=== PATIENT | male | born 1955 | race Caucasian/White ===

== ENCOUNTER 2019-08-10 12:53 | Observation (INO) | payer OTHER ==
[~2019-08-10] VITALS: Ht 175.3 cm; Wt 150.3 kg
[~2019-08-10 12:53] MED LIST: ATOR40TA59 PO; INSU100V8 SQ; LIRA0.6P SQ; LISI10TA2 PO; MELO15TA23 PO; METF500T16 PO; ceFAZolin SODIUM 3 GM in IV DEXTROSE 5% 100ML 100 ML IV ONE
[2019-08-10] MEDS ORDERED: ETOMIDATE 20 MG/10 ML VIAL. IV ONE (13:52)
[2019-08-10] MEDS ORDERED: KETOROLAC 30 MG/ML VIAL. ONE (13:52)
[2019-08-10] MEDS ORDERED: DEXAMETHASONE SOD PHOS 4 MG/ML VIAL ONE (13:52)
[2019-08-10] MEDS ORDERED: FAMOTIDINE 20 MG/2 ML VIAL ONE (13:52)
[2019-08-10] MEDS ORDERED: ONDANSETRON PF 4 MG/2 ML VIAL. ONE (13:52)
[2019-08-10] MEDS ORDERED: SUCCINYLCHOLINE 200 MG/10 ML VIAL. ONE (13:53)
[2019-08-10] MEDS ORDERED: fentaNYL PF VIAL 100 MCG/2 ML VIAL ONE (13:53)
[2019-08-10] MEDS ORDERED: BACITRACIN 50,000 UNIT in IV NORMAL SALINE 500ML BAG 500 ML IRR ONE (14:00)
[2019-08-10] MEDS ORDERED: CHLORHEXIDINE 0.12% 15 ML MOUTHWASH. SWSP ONE (14:15)
[2019-08-10] MEDS ORDERED: BUPIVACAINE-EPI 0.5%-1:200000 MPF 30 ML VIAL. INJ ONE (14:15)
[2019-08-10] MEDS ORDERED: INSULIN LISPRO 100 UNIT/ML 3ML VIAL for OP,RR ONLY. SQ PRN (14:15)
[2019-08-10] MEDS ORDERED: GELATIN SPONGE SIZE 100. ONE (14:18)
[2019-08-10] MEDS ORDERED: ROCURONIUM 50 MG/5 ML VIAL. ONE (15:06)
[2019-08-10] MEDS ORDERED: PHENYLEPHRINE in 0.9% NACL PF 1 MG/10 ML SYRINGE. IV ONE (15:38)
[2019-08-10] MEDS ORDERED: GLYCOPYRROLATE 1 MG/5 ML VIAL. ONE (15:39)
[2019-08-10] MEDS ORDERED: NEOSTIGMINE METHYLSULFATE 5 MG/5 ML SYRINGE. ONE (15:39)
--- NOTE | 2019-08-10 16:12 | PDOC4 ---
OPERATIVE NOTE Date: Date: Aug 10, 2019 Pre-Op Diagnosis: Aortic stenosis Caries, non restorable teeth # 14, 15, 16, 17, 18 Post-Op Diagnosis: same Procedure Performed: Surgical removal of Caries, non restorable teeth # 14, 15, 16, 17, 18 Surgeon: navjot Anesthesia Type: McNit Blood Loss: 20 Specimans Obtained: teeth disposed of in OR Findings: see dictation Complications: none Operative Note: see dictation Caries, non restorable teeth # 14, 15, 16, 17, 18 CHRISTY VEGA DMD Aug 10, 2019 16:12
[2019-08-10] MEDS ORDERED: PROCHLORPERAZINE 10 MG/2 ML VIAL. ONE (16:17)
[2019-08-10] MEDS ORDERED: IV RINGERS,LACTATED 1000ML 1,000 ML IV SCH (16:18)
[2019-08-10] MEDS: PROCHLORPERAZINE 10 MG/2 ML VIAL. IV PRN ×2 (16:27→16:44)
[2019-08-10] MEDS ORDERED: HYDROmorphone 2 MG/ML VIAL IV PRN (16:30)
[2019-08-10] MEDS ORDERED: ONDANSETRON PF 4 MG/2 ML VIAL. IV PRN (16:30)
[2019-08-10] MEDS ORDERED: fentaNYL PF VIAL 100 MCG/2 ML VIAL IV PRN ×2 (16:30)
[2019-08-10] MEDS ORDERED: MORPHINE SULFATE 2 MG/ML VIAL. IV PRN (16:30)
--- NOTE | 2019-08-10 17:22 | PDOC ---
Date and Time 64 yo with severe aortic stenosis (0.9cm2), pulmonary hypertension and 3 vessel coronary artery disease who is 1 hour post op from dental extraction. Infected teeth had to be removed in anticipation of AVR next Saturday. Patient arrived with RA SpO2 90%. Supplemental oxygen was given prior to induction and he did improve to 95-97%. Uneventful general anesthesia for dental extraction. In PACU 1 hr post op he is awake with a clear airway. Patient does NOT have supplemental oxygen at home. I believe safest course with his cardiac issues and borderline SpO2 is to keep him in the hospital with supplemental oxygen and telemetry and SpO2 monitor overnight. This was discussed with Dr Casas. Orders written. Hospitalist service to see and manage. Current Medications Current Medications Cefazolin Sodium 3 gm/Dextrose 100 ml @ 200 mls/hr ONCE ONCE IV ; Start 08/10/19 at 06:00; Stop 08/10/19 at 06:29; Status DC Ketorolac Tromethamine (Toradol 30mg Vial) 30 mg STK-MED ONCE .ROUTE ; Start 08/10/19 at 13:52; Stop 08/10/19 at 13:53; Status DC Famotidine (Pepcid Vial) 20 mg STK-MED ONCE .ROUTE ; Start 08/10/19 at 13:52; Stop 08/10/19 at 13:53; Status DC Ondansetron HCl (Zofran) 4 mg STK-MED ONCE .ROUTE ; Start 08/10/19 at 13:52; Stop 08/10/19 at 13:53; Status DC Etomidate (Amidate) 20 mg STK-MED ONCE IV ; Start 08/10/19 at 13:52; Stop 08/10/19 at 13:53; Status DC Dexamethasone Sodium Phosphate (Decadron) 4 mg STK-MED ONCE .ROUTE ; Start 08/10/19 at 13:52; Stop 08/10/19 at 13:53; Status DC Succinylcholine Chloride (Anectine) 200 mg STK-MED ONCE .ROUTE ; Start 08/10/19 at 13:53; Stop 08/10/19 at 13:53; Status DC Fentanyl Citrate (Fentanyl 2ml Vial) 100 mcg STK-MED ONCE .ROUTE ; Start 08/10/19 at 13:53; Stop 08/10/19 at 13:53; Status DC Insulin Human Lispro (HumaLOG VIAL for OP,RR ONLY) 0-10 units PRN Q1HR PRN SQ PER PROTOCOL Last administered on 08/10/19at 16:29; Start 08/10/19 at 14:15; Stop 08/11/19 at 14:14 Chlorhexidine Gluconate (Peridex) 15 ml 1X ONCE SWSP Last administered on 08/10/19at 15:33; Start 08/10/19 at 14:15; Stop 08/10/19 at 14:16; Status DC Bupivacaine HCl/ Epinephrine Bitart (Sensorcain-Epi 0.5%-1:606102 Mpf) 30 ml 1X ONCE INJ Last administered on 08/10/19at 16:10; Start 08/10/19 at 14:15; Stop 08/10 at 14:16; Status DC Bacitracin 98490 unit/Sodium Chloride 500 ml @ 500 mls/hr 1X ONCE IRR Last administered on 08/10/19at 16:10; Start 08/10/19 at 14:00; Stop 08/10/19 at 14:59; Status DC Gelatin (Gelfoam Size 100) 1 each STK-MED ONCE .ROUTE Last administered on 08/10/19at 15:33; Start 08/10/19 at 14:18; Stop 08/10/19 at 14:19; Status DC Rocuronium Charlo (Zemuron) 50 mg STK-MED ONCE .ROUTE ; Start 08/10/19 at 15:06; Stop 08/10/19 at 15:06; Status DC Phenylephrine HCl (PHENYLEPHRINE in 0.9% NACL PF) 1 mg STK-MED ONCE IV ; Start 08/10/19 at 15:38; Stop 08/10/19 at 15:38; Status DC Neostigmine Methylsulfate (Neostigmine Methylsulfate) 5 mg STK-MED ONCE .ROUTE ; Start 08/10/19 at 15:39; Stop 08/10/19 at 15:39; Status DC Glycopyrrolate (Robinul) 1 mg STK-MED ONCE .ROUTE ; Start 08/10/19 at 15:39; Stop 08/10/19 at 15:39; Status DC Prochlorperazine Edisylate (Compazine) 10 mg STK-MED ONCE .ROUTE ; Start 08/10/19 at 16:17; Stop 08/10/19 at 16:17; Status DC Ondansetron HCl (Zofran) 4 mg PRN Q6HRS PRN IV NAUSEA/VOMITING; Start 08/10/19 at 16:30; Stop 08/11/19 at 16:29 Fentanyl Citrate (Fentanyl 2ml Vial) 25 mcg PRN Q5MIN PRN IV MILD PAIN 1-3; Start 08/10/19 at 16:30; Stop 08/11/19 at 16:29 Fentanyl Citrate (Fentanyl 2ml Vial) 50 mcg PRN Q5MIN PRN IV MODERATE TO SEVERE PAIN; Start 08/10/19 at 16:30; Stop 08/11/19 at 16:29 Morphine Sulfate (Morphine Sulfate) 1 mg PRN Q10MIN PRN IV SEVERE PAIN 7-10; Start 08/10/19 at 16:30; Stop 08/11/19 at 16:29 Ringer's Solution 1,000 ml @ 30 mls/hr Q24H IV ; Start 08/10/19 at 16:18; Stop 08/11/19 at 04:17 Hydromorphone HCl (Dilaudid) 0.5 mg PRN Q10MIN PRN IV SEV PAIN, Second choice; Start 08/10/19 at 16:30; Stop 08/11/19 at 16:29 Prochlorperazine Edisylate (Compazine) 5 mg PACU PRN PRN IV NAUSEA, MRX1 Last administered on 08/10/19at 16:44; Start 08/10/19 at 16:30; Stop 08/11/19 at 16:29 Active Scripts Active Reported Lantus (Insulin Glargine,Hum.rec.anlog) 100 Unit/1 Ml Vial 50 Unit SQ DAILY Metformin Hcl 500 Mg Tablet 2,000 Mg PO QEVNG Meloxicam 15 Mg Tablet 1 Tab PO DAILY Lisinopril 10 Mg Tablet 1 Tab PO DAILY Victoza 2-Vasile (Liraglutide) 0.6 Mg/0.1 Ml Pen.injctr 0.6 Mg SQ Q HS Atorvastatin Calcium 40 Mg Tablet 0.5 Tab PO QHS Pertinent Labs/Test Laboratory Tests Test 08/10/19 14:04 08/10/19 16:14 Glucose (Fingerstick) 125 mg/dL (70-99) 177 mg/dL (70-99) Laboratory Tests Test 08/10/19 14:04 08/10/19 16:14 Glucose (Fingerstick) 125 mg/dL (70-99) 177 mg/dL (70-99) LAST VITALS Vital Signs Date Time Temp Pulse Resp B/P (MAP) Pulse Ox O2 Delivery O2 Flow Rate FiO2 08/10/19 16:55 77 18 92 Nasal Cannula 2 08/10/19 16:40 161/73 08/10/19 16:06 98.1 98.1 ALEXUS GARCIA MD Aug 10, 2019 17:22
[2019-08-10 18:15] VITALS: BP 159/65
[2019-08-10] MEDS ORDERED: IV DEXTROSE 5% 250 ML BAG. IV PRN (18:45)
[2019-08-10] MEDS ORDERED: NON FORMULARY ITEM (Liraglutide (Victoza 2-Pak) 0.6 MG) SQ SCH (18:45)
[2019-08-10] MEDS ORDERED: DOCUSATE SODIUM 100 MG CAPSULE. PO PRN (18:45)
[2019-08-10] MEDS ORDERED: MORPHINE SULFATE 4 MG/ML VIAL. IV PRN (18:45)
[2019-08-10] MEDS ORDERED: DEXTROSE 50% 25 GM / 50ML DISP.SYRIN. IV PRN (18:45)
[2019-08-10 19:46] VITALS: BP 164/90
[2019-08-10] MEDS ORDERED: ATORVASTATIN CALCIUM 40 MG TABLET. PO SCH (21:00)
[2019-08-10] MEDS: CHLORHEXIDINE 0.12% 15 ML MOUTHWASH. SWSP SCH (21:44)
--- NOTE | 2019-08-10 22:10 | OP ---
DATE OF SURGERY: 08/10/2019 OPERATING SERVICE: cottage master. ATTENDING PHYSICIAN: Zenon Vega DMD PREOPERATIVE DIAGNOSES: Aortic stenosis, diabetes, osteoarthritis, obstructive sleep apnea, morbid obesity and finally carious nonrestorable teeth numbers 14, 15, 16, 17, and 18. POSTOPERATIVE DIAGNOSES: Aortic stenosis, diabetes, osteoarthritis, obstructive sleep apnea, morbid obesity and finally carious nonrestorable teeth numbers 14, 15, 16, 17, and 18. PROCEDURE PERFORMED: Extraction of teeth 14, 15, 16, 17, 18. BRIEF HISTORY: The patient was referred to this urgent referral as he has severe aortic stenosis with a compromised cardiopulmonary function. He was planned for aortic valve replacement on 08/17/2019. Considering this timeframe and somewhat poor dentition in selected teeth, he was referred for urgent extraction and removal of these teeth. Brief history and physical was performed in our clinic and permit was obtained and he was scheduled for surgery. COMPLICATIONS: None noted at the time of surgery. SPECIMEN SENT: None. DRAINS PLACED: None. ESTIMATED BLOOD LOSS: Approximately 20 mL. OPERATIVE DESCRIPTION: After the history and physical was updated in the preoperative holding area, the patient was transported by the Anesthesia Service to the operating suite, placed in the supine position. General anesthesia was induced. The patient was intubated with a PEG tube secured to the right side of the face. Timeout was initiated and all surgical staff was in agreeance. The patient was then prepped and draped in the normal sterile fashion. The moistened throat pack was placed. Bite block was placed in the oral cavity and local anesthesia was then introduced, approximately 16 mL of local anesthetic in the proposed surgical areas. An additional 10 mL for a total of 26 mL were administered at the culmination of the procedure. This was 0.5% bupivacaine, 1:200,000 epinephrine. The surgery began in the upper left and lower left quadrants with a 15 blade, a full thickness mucoperiosteal flap was then elevated buccally at the sites of 14, 15, 16, 17, 18 and 19. The teeth were luxated, elevated and extracted. Multiple roots were required to be removed on each tooth with a rotary instrumentation. This was performed under copious normal sterile saline irrigation and hand instruments were then used to remove the root tips. Each extraction site was curetted and lavaged with copious normal sterile saline. Alveoloplasty was then performed in the upper left and lower left quadrants. With this, the bony undercuts were removed and smoothed with rongeurs, bone file and curettaged with copious normal sterile saline irrigation. The sites were packed with Gelfoam and oversewn with 3-0 chromic gut sutures in a running locked fashion. Once the sites were hemostatic, the patient's oral cavity was then lavaged and suctioned. The moistened throat pack was removed. An OG was passed and the stomach was decompressed. The patient was then returned to the care of Anesthesia, where he was awakened and extubated without complication and transported to the PACU in stable condition. ZENON VEGA DMD DR: Fely JOB#: [id number] / [id number]
--- NOTE | 2019-08-10 22:14 | PDOC1 ---
History and Physical Date of Admission Date of Admission DATE: 08/10/19 TIME: 22:09 Source Source: Chart review, Patient History of Present Illness History of Present Illness pt taken to OR today by Dr. Casas for teeth extraction, 5 teeth removed for dental caries. wanted better hygeine before cardiac valve repair done in [place] mo next week, this was elective surg, he walked in with Sa02 90% on room air, and he has needed 02 after surg, having dental pain, otherwise feels well he served as an MP in the in 1972, went to [employer] Family History Family History: No Significant Social History Smoke: No ALCOHOL: none Drugs: None Current Medications Current Medications Current Medications Cefazolin Sodium 3 gm/Dextrose 100 ml @ 200 mls/hr ONCE ONCE IV ; Start 08/10/19 at 06:00; Stop 08/10/19 at 06:29; Status DC Ketorolac Tromethamine (Toradol 30mg Vial) 30 mg STK-MED ONCE .ROUTE ; Start 08/10/19 at 13:52; Stop 08/10/19 at 13:53; Status DC Famotidine (Pepcid Vial) 20 mg STK-MED ONCE .ROUTE ; Start 08/10/19 at 13:52; Stop 08/10/19 at 13:53; Status DC Ondansetron HCl (Zofran) 4 mg STK-MED ONCE .ROUTE ; Start 08/10/19 at 13:52; Stop 08/10/19 at 13:53; Status DC Etomidate (Amidate) 20 mg STK-MED ONCE IV ; Start 08/10/19 at 13:52; Stop 08/10/19 at 13:53; Status DC Dexamethasone Sodium Phosphate (Decadron) 4 mg STK-MED ONCE .ROUTE ; Start 08/10/19 at 13:52; Stop 08/10/19 at 13:53; Status DC Succinylcholine Chloride (Anectine) 200 mg STK-MED ONCE .ROUTE ; Start 08/10/19 at 13:53; Stop 08/10/19 at 13:53; Status DC Fentanyl Citrate (Fentanyl 2ml Vial) 100 mcg STK-MED ONCE .ROUTE ; Start 08/10/19 at 13:53; Stop 08/10/19 at 13:53; Status DC Insulin Human Lispro (HumaLOG VIAL for OP,RR ONLY) 0-10 units PRN Q1HR PRN SQ PER PROTOCOL Last administered on 08/10/19at 16:29; Start 08/10/19 at 14:15; Stop 08/11/19 at 14:14 Chlorhexidine Gluconate (Peridex) 15 ml 1X ONCE SWSP Last administered on 08/10/19at 15:33; Start 08/10/19 at 14:15; Stop 08/10/19 at 14:16; Status DC Bupivacaine HCl/ Epinephrine Bitart (Sensorcain-Epi 0.5%-1:873707 Mpf) 30 ml 1X ONCE INJ Last administered on 08/10/19at 16:10; Start 08/10/19 at 14:15; Stop 08/10/19 at 14:16; Status DC Bacitracin 93439 unit/Sodium Chloride 500 ml @ 500 mls/hr 1X ONCE IRR Last administered on 08/10/19at 16:10; Start 08/10/19 at 14:00; Stop 08/10/19 at 14:59; Status DC Gelatin (Gelfoam Size 100) 1 each STK-MED ONCE .ROUTE Last administered on 08/10/19at 15:33; Start 08/10/19 at 14:18; Stop 08/10/19 at 14:19; Status DC Rocuronium Vesper (Zemuron) 50 mg STK-MED ONCE .ROUTE ; Start 08/10/19 at 15:06; Stop 08/10/19 at 15:06; Status DC Phenylephrine HCl (PHENYLEPHRINE in 0.9% NACL PF) 1 mg STK-MED ONCE IV ; Start 08/10/19 at 15:38; Stop 08/10/19 at 15:38; Status DC Neostigmine Methylsulfate (Neostigmine Methylsulfate) 5 mg STK-MED ONCE .ROUTE ; Start 08/10/19 at 15:39; Stop 08/10/19 at 15:39; Status DC Glycopyrrolate (Robinul) 1 mg STK-MED ONCE .ROUTE ; Start 08/10/19 at 15:39; Stop 08/10/19 at 15:39; Status DC Prochlorperazine Edisylate (Compazine) 10 mg STK-MED ONCE .ROUTE ; Start 08/10/19 at 16:17; Stop 08/10/19 at 16:17; Status DC Ondansetron HCl (Zofran) 4 mg PRN Q6HRS PRN IV NAUSEA/VOMITING; Start 08/10/19 at 16:30; Stop 08/11/19 at 16:29 Fentanyl Citrate (Fentanyl 2ml Vial) 25 mcg PRN Q5MIN PRN IV MILD PAIN 1-3; Start 08/10/19 at 16:30; Stop 08/11/19 at 16:29 Fentanyl Citrate (Fentanyl 2ml Vial) 50 mcg PRN Q5MIN PRN IV MODERATE TO SEVERE PAIN; Start 08/10/19 at 16:30; Stop 08/11/19 at 16:29 Morphine Sulfate (Morphine Sulfate) 1 mg PRN Q10MIN PRN IV SEVERE PAIN 7-10; Start 08/10/19 at 16:30; Stop 08/11/19 at 16:29 Ringer's Solution 1,000 ml @ 30 mls/hr Q24H IV ; Start 08/10/19 at 16:18; Stop 08/11/19 at 04:17 Hydromorphone HCl (Dilaudid) 0.5 mg PRN Q10MIN PRN IV SEV PAIN, Second choice; Start 08/10/19 at 16:30; Stop 08/11/19 at 16:29 Prochlorperazine Edisylate (Compazine) 5 mg PACU PRN PRN IV NAUSEA, MRX1 Last administered on 08/10/19at 16:44; Start 08/10/19 at 16:30; Stop 08/11/19 at 16:29 Atorvastatin Calcium (Lipitor) 20 mg QHS PO Last administered on 08/10/19at 21:46; Start 08/10/19 at 21:00 Insulin Glargine (Lantus Syringe) 50 unit DAILY SQ ; Start 08/11/19 at 09:00 Lisinopril (Prinivil) 10 mg DAILY PO ; Start 08/11/19 at 09:00 Metformin HCl (Glucophage) 2,000 mg QEVNG PO ; Start 08/11/19 at 18:00 Non-Formulary Medication (Liraglutide (Victoza 2-Vasile)) 0.6 mg q hs SQ ; Start 08/10/19 at 18:45; Status UNV Meloxicam (Mobic) 15 mg DAILY PO ; Start 08/11/19 at 09:00 Morphine Sulfate (Morphine Sulfate) 4 mg PRN Q2HR PRN IV PAIN; Start 08/10/19 at 18:45 Insulin Human Lispro (HumaLOG) 0-7 UNITS TIDWMEALS SQ ; Start 08/11/19 at 08:00 Dextrose (Dextrose 50%-Water Syringe) 12.5 gm PRN Q15MIN PRN IV SEE COMMENTS; Start 08/10/19 at 18:45 Dextrose 250 ml PRN Q15MIN PRN IV SEE COMMENTS; Start 08/10/19 at 18:45 Docusate Sodium (Colace) 100 mg PRN DAILY PRN PO CONSTIPATION; Start 08/10/19 at 18:45 Docusate Sodium (Colace) 100 mg DAILY PO ; Start 08/11/19 at 09:00 Chlorhexidine Gluconate (Peridex) 15 ml QID SWSP Last administered on 08/10/19at 21:46; Start 08/10/19 at 21:00 Active Scripts Active Reported Lantus (Insulin Glargine,Hum.rec.anlog) 100 Unit/1 Ml Vial 50 Unit SQ DAILY Metformin Hcl 500 Mg Tablet 2,000 Mg PO QEVNG Meloxicam 15 Mg Tablet 1 Tab PO DAILY Lisinopril 10 Mg Tablet 1 Tab PO DAILY Victoza 2-Vasile (Liraglutide) 0.6 Mg/0.1 Ml Pen.injctr 0.6 Mg SQ Q HS Atorvastatin Calcium 40 Mg Tablet 0.5 Tab PO QHS Allergies Allergies: Coded Allergies: Tetracyclines (Verified Allergy, Intermediate, BROKE OUT [place]A (1970'S [place] ), 08/10/19) ROS General: No: Chills, Night Sweats, Fatigue, Malaise, Appetite, Other PSYCHOLOGICAL ROS: No: Anxiety, Behavioral Disorder, Concentration difficultie, Decreased libido, Depression, Disorientation, Hallucinations, Hostility, Irritablity, Memory difficulties, Mood Swings, Obsessive thoughts, Physical abuse, Sexual abuse, Sleep disturbances, Suicidal ideation, Other Eyes: No Blurry vision, No Decreased vision, No Double vision, No Dry eyes, No Excessive tearing, No Eye Pain, No Itchy Eyes, No Loss of vision, No Photophobia, No Scotomata, No Uses contacts, No Uses glasses, No Other HEENT: No: Heacaches, Visual Changes, Hearing change, Nasal congestion, Nasal discharge, Oral lesions, Sinus pain, Sore Throat, Epistaxis, Sneezing, Snoring, Tinnitus, Vertigo, Vocal changes, Other Respiratory: YES: Shortness of breath, SOB with excertion, Tachypnea; No: Cough, Hemoptysis, Orthopnea, Pleuritic Pain, Sputum Changes, Stridor, Wheezing, Other Cardiovascular: No Chest Pain, No Palpitations, No Orthopnea, No Paroxysmal Noc. Dyspnea, No Edema, No Lt Headedness, No Other Gastrointestinal: No Nausea, No Vomiting, No Abdominal Pain, No Diarrhea, No Constipation, No Melena, No Hematochezia, No Other Genitourinary: No Dysuria, No Frequency, No Incontinence, No Hematuria, No Retention, No Discharge, No Urgency, No Pain, No Flank Pain, No Other, No , No , No , No , No , No , No Musculoskeletal: Yes Joint Stiffness, Yes Joint Swelling; No Gait Disturbance, No Joint Pain, No Muscle Pain, No Muscular Weakness, No Pain In:, No Swelling In:, No Other Neurological: No Behavorial Changes, No Bowel/Bladder ControlChng, No Confusion, No Dizziness, No Gait Disturbance, No Headaches, No Impaired Coord/balance, No Memory Loss, No Numbness/Tingling, No Seizures, No Speech Problems, No Tremors, No Visual Changes, No Weakness, No Other Skin: No Dry Skin, No Eczema, No Hair Changes, No Lumps, No Mole Changes, No M ottling, No Nail Changes, No Pruritus, No Rash, No Skin Lesion Changes, No Other, No Acne Physical Exam General: Alert, Oriented X3, No acute distress HEENT: Atraumatic, EOMI Lungs: Clear to auscultation, Normal air movement Heart: RRR, no gallops, murmurs (loud) Abdomen: Normal bowel sounds, Soft Extremities: No clubbing, No cyanosis, No edema Skin: No rashes, No significant lesion Neuro: Normal gait, Normal tone, Cranial nerves 3-12 NL Psych/Mental Status: Mental status NL, Mood NL Vitals Vitals Vital Signs Date Time Temp Pulse Resp B/P (MAP) Pulse Ox O2 Delivery O2 Flow Rate FiO2 08/10/19 19:46 98.7 78 16 164/90 (114) 95 Nasal Cannula 3.0 98.7 Labs Labs Laboratory Tests Test 08/10/19 14:04 08/10/19 16:14 08/10/19 18:27 08/10/19 20:43 Glucose (Fingerstick) 125 mg/dL (70-99) 177 mg/dL (70-99) 226 mg/dL (70-99) 247 mg/dL (70-99) Laboratory Tests Test 08/10/19 14:04 08/10/19 16:14 08/10/19 18:27 08/10/19 20:43 Glucose (Fingerstick) 125 mg/dL (70-99) 177 mg/dL (70-99) 226 mg/dL (70-99) 247 mg/dL (70-99) VTE Prophylaxis Ordered VTE Prophylaxis Devices: No VTE Pharmacological Prophylaxi: No Assessment/Plan Assessment/Plan acute hypoxia after surgery dental caries, removed today severe aortic stenosis, is scheduled for Valve repair 1 week from today at [facility] chronic systolic CHF from stenosis morbid obesity SAM ROUSE MD Aug 10, 2019 22:13
[2019-08-10 22:27] VITALS: BP 155/83
[2019-08-11 03:22] VITALS: BP 141/71
[2019-08-11 06:55] LABS: BASO % 0 % (0-3); EOS % 0 % (0-3); HEMATOCRIT 44.8 % (39.0-53.0); HEMOGLOBIN 15.1 g/dL (13.0-17.5); LYMPH # 1.3 x10^3/uL (1.0-4.8); LYMPH % 10 % (24-48); MEAN CORPUSCULAR HEMOGLOBIN 31 pg (25-35); MEAN CORPUSCULAR HGB CONC 34 g/dL (31-37); MEAN CORPUSCULAR VOLUME 92 fL (79-100); MONO # 0.7 x10^3/uL (0.0-1.1); MONO % 6 % (0-9); NEUT # 10.5 x10^3/uL (1.8-7.7); NEUT % 84 % (31-73); PLATELET COUNT 186 x10^3/uL (140-400); RED CELL DISTRIBUTION WIDTH 14.4 % (11.5-14.5); WHITE BLOOD COUNT 12.5 x10^3/uL (4.0-11.0)
[2019-08-11 07:00] VITALS: BP 138/80
[2019-08-11 07:24] LABS: ALBUMIN 3.6 g/dL (3.4-5.0); ALBUMIN/GLOBULIN RATIO 0.8 (1.0-1.7); CALCIUM 9.3 mg/dL (8.5-10.1); POTASSIUM 4.3 mmol/L (3.5-5.1); TOTAL BILIRUBIN 0.8 mg/dL (0.2-1.0); TOTAL PROTEIN 7.9 g/dL (6.4-8.2)
[2019-08-11] MEDS ORDERED: INSULIN LISPRO 300 UNITS/3 ML VIAL. SQ SCH (08:00)
[2019-08-11] MEDS ORDERED: INSULIN GLARGINE SYRINGE. SQ SCH (09:00)
[2019-08-11] MEDS ORDERED: MELOXICAM 7.5 MG TABLET PO SCH (09:00)
[2019-08-11] MEDS: CHLORHEXIDINE 0.12% 15 ML MOUTHWASH. SWSP SCH (09:00)
[2019-08-11] MEDS ORDERED: LISINOPRIL 10 MG TABLET PO SCH (09:00)
[2019-08-11] MEDS ORDERED: DOCUSATE SODIUM 100 MG CAPSULE. PO SCH (09:00)
[2019-08-11 11:00] VITALS: BP 129/64
--- NOTE | 2019-08-11 11:27 | NUR ---
Provided information on six minute walk and patient refused the test. Wished to be seen by primary first at the [facility].
--- NOTE | 2019-08-11 12:04 | PDOC ---
[employer] PROGRESS NOTE Chief Complaint Chief Complaint Dental Caries Acute hypoxia after surgery Aortic Stenosis Chronic Systolic CHF History of Present Illness History of Present Illness 08/11/19 Pt seen and examined lying in bed in NAD Pt really wants to go home Pt accompanied by DW briefcase sewer DW RN Chart reviewed Vitals/I&O Vitals/I&O: Vital Signs Date Time Temp Pulse Resp B/P (MAP) Pulse Ox O2 Delivery O2 Flow Rate FiO2 08/11/19 11:00 97.9 82 18 129/64 (85) 92 Room Air 97.9 08/11/19 08:00 1.0 I & O 08/10/19 08/10/19 08/11/19 15:00 23:00 07:00 Intake Total 820 ml 200 ml Output Total 345 ml 1175 ml Balance 475 ml -975 ml Physical Exam General: Alert, Oriented X3, Cooperative, No acute distress Heart: Regular rate, Normal S1 Lungs: Clear Abdomen: Normal bowel sounds, Soft Extremities: No clubbing, No cyanosis, No edema Skin: No rashes, No significant lesion Labs Labs: Laboratory Tests Test 08/10/19 14:04 08/10/19 16:14 08/10/19 18:27 08/10/19 20:43 Glucose (Fingerstick) 125 mg/dL (70-99) 177 mg/dL (70-99) 226 mg/dL (70-99) 247 mg/dL (70-99) Test 08/11/19 05:40 08/11/19 11:19 White Blood Count 12.5 x10^3/uL (4.0-11.0) Red Blood Count 4.90 x10^6/uL (4.30-5.70) Hemoglobin 15.1 g/dL (13.0-17.5) Hematocrit 44.8 % (39.0-53.0) Mean Corpuscular Volume 92 fL (79-100) Mean Corpuscular Hemoglobin 31 pg (25-35) Mean Corpuscular Hemoglobin Concent 34 g/dL (31-37) Red Cell Distribution Width 14.4 % (11.5-14.5) Platelet Count 186 x10^3/uL (140-400) Neutrophils (%) (Auto) 84 % (31-73) Lymphocytes (%) (Auto) 10 % (24-48) Monocytes (%) (Auto) 6 % (0-9) Eosinophils (%) (Auto) 0 % (0-3) Basophils (%) (Auto) 0 % (0-3) Neutrophils # (Auto) 10.5 x10^3/uL (1.8-7.7) Lymphocytes # (Auto) 1.3 x10^3/uL (1.0-4.8) Monocytes # (Auto) 0.7 x10^3/uL (0.0-1.1) Eosinophils # (Auto) 0.0 x10^3/uL (0.0-0.7) Basophils # (Auto) 0.0 x10^3/uL (0.0-0.2) Sodium Level 137 mmol/L (136-145) Potassium Level 4.3 mmol/L (3.5-5.1) Chloride Level 101 mmol/L (98-107) Carbon Dioxide Level 29 mmol/L (21-32) Anion Gap 7 (6-14) Blood Urea Nitrogen 16 mg/dL (8-26) Creatinine 1.0 mg/dL (0.7-1.3) Estimated GFR (Cockcroft-Gault) 75.0 BUN/Creatinine Ratio 16 (6-20) Glucose Level 261 mg/dL (70-99) Calcium Level 9.3 mg/dL (8.5-10.1) Total Bilirubin 0.8 mg/dL (0.2-1.0) Aspartate Amino Transf (AST/SGOT) 27 U/L (15-37) Alanine Aminotransferase (ALT/SGPT) 22 U/L (16-63) Alkaline Phosphatase 87 U/L (46-116) Total Protein 7.9 g/dL (6.4-8.2) Albumin 3.6 g/dL (3.4-5.0) Albumin/Globulin Ratio 0.8 (1.0-1.7) Glucose (Fingerstick) 293 mg/dL (70-99) Review of Systems Review of Systems: No co acute pain No co SOB Assessment and Plan Assessmemt and Plan Assessment Dental Caries Acute hypoxia after surgery Aortic Stenosis Chronic Systolic CHF Plan D/C home today PT/OT DVT Prophylaxis Full code Home Meds Comment Review of Relevant I have reviewed the following items ashlyn (where applicable) has been applied. Medications: Current Medications Medications (Trade) Dose Ordered Sig/Dalia Route PRN Reason Start Time Stop Time Status Last Admin Dose Admin Insulin Human Lispro (HumaLOG VIAL for OP,RR ONLY) 0-10 units PRN Q1HR PRN SQ PER PROTOCOL 08/10/19 14:15 08/11/19 14:14 08/10/19 16:29 Chlorhexidine Gluconate (Peridex) 15 ml 1X ONCE SWSP 08/10/19 14:15 08/10/19 14:16 DC 08/10/19 15:33 Bupivacaine HCl/ Epinephrine Bitart (Sensorcain-Epi 0.5%-1:228564 Mpf) 30 ml 1X ONCE INJ 08/10/19 14:15 08/10/19 14:16 DC 08/10/19 16:10 Bacitracin 78222 unit/Sodium Chloride 500 ml @ 500 mls/hr 1X ONCE IRR 08/10/19 14:00 08/10/19 14:59 DC 08/10/19 16:10 Gelatin (Gelfoam Size 100) 1 each STK-MED ONCE .ROUTE 08/10/19 14:18 08/10/19 14:19 DC 08/10/19 15:33 Prochlorperazine Edisylate (Compazine) 5 mg PACU PRN PRN IV NAUSEA, MRX1 08/10/19 16:30 08/11/19 16:29 08/10/19 16:44 Atorvastatin Calcium (Lipitor) 20 mg QHS PO 08/10/19 21:00 08/10/19 21:46 Insulin Glargine (Lantus Syringe) 50 unit DAILY SQ 08/11/19 09:00 08/11/19 08:49 Lisinopril (Prinivil) 10 mg DAILY PO 08/11/19 09:00 08/11/19 08:49 Meloxicam (Mobic) 15 mg DAILY PO 08/11/19 09:00 08/11/19 08:49 Morphine Sulfate (Morphine Sulfate) 4 mg PRN Q2HR PRN IV PAIN 08/10/19 18:45 08/10/19 22:39 Chlorhexidine Gluconate (Peridex) 15 ml QID SWSP 08/10/19 21:00 08/10/19 21:46 AMANDA SMITH III DO Aug 11, 2019 12:04
--- NOTE | 2019-08-11 12:10 | NUR ---
Patient discharged to home. Discharge instructions given to patient and verbalized understanding. PIV and monitor removed. Escorted patient to [facility] per wheelchair into a private vehicle.
[2019-08-11] MEDS ORDERED: metFORMIN 500 MG TABLET PO SCH (18:00)
--- NOTE | 2019-08-12 22:44 | DS ---
DATE OF DISCHARGE: 08/11/2019 ADMISSION DIAGNOSIS: Dental caries. DISCHARGE DIAGNOSES: Postop extraction of 5 dental caries, valvular heart disease (he is going to get his valvular placed at the [facility] in [place] in a few weeks). HOSPITAL COURSE: The patient is a pleasant middle-aged male who basically had dental caries. He was admitted as an outpatient and had those extracted and postoperatively, he had hypoxia. He was admitted for observation overnight. Yesterday, we saw and examined, he was doing well. We discharged to home. DISPOSITION: Home. ACTIVITY: As tolerated. DIET: Low sodium. MEDICATIONS: Please see MRAD. TOTAL TIME: 34 minutes. AMANDA SMITH DO DR: JESSICA/taylor JOB#: [id number] / [id number]
== END 2019-08-11 12:10 | disposition home or self-care (01) ==
LOC: SURG 12:53 → EDSTATUS 15:00 → 2 NORTH 17:15
PROVIDERS: ADMIT Internal Medicine; ATTEND Internal Medicine
DX: K02.9 Dental caries, unspecified (principal); I35.0 Nonrheumatic aortic (valve) stenosis; E11.9 Type 2 diabetes mellitus without complications; E66.01 Morbid (severe) obesity due to excess calories; G47.33 Obstructive sleep apnea (adult) (pediatric); M19.90 Unspecified osteoarthritis, unspecified site; R09.02 Hypoxemia; I50.22 Chronic systolic (congestive) heart failure; Z95.2 Presence of prosthetic heart valve
CPT/HCPCS: 36415; 41899; 80053; 82962; 85025; 96372; 96374; A7015; G0378; G0379; J0330; J0690; J0780; J1100; J1815; J1885; J2270; J2370; J2405; J2710; J3010; J3490; J7040